=== PATIENT | female | born 1960 | race Caucasian/White ===

== ENCOUNTER 2021-12-27 08:24 | Day surgery (SDC) | payer MEDICAID ==
[~2021-12-27] VITALS: Ht 172.7 cm; Wt 77.9 kg
[2021-12-27] MEDS ORDERED: normal saline 1000ml 1,000 ML IV PRN (08:50)
[2021-12-27] MEDS ORDERED: DEXA4TAB77 PO (08:51)
[2021-12-27] MEDS ORDERED: ATOR10TA70 PO (08:51)
[2021-12-27 08:55] VITALS: BP 124/79
[2021-12-27] MEDS ORDERED: normal saline 1000ml 1,000 ML IV SCH (09:30)
[2021-12-27] MEDS ORDERED: LIDOcaine 1%/PF 5ML 10 MG/ML VIAL ONE ×2 (09:33→09:35)
[2021-12-27] MEDS ORDERED: midazolam 1 mg/ML 2ml injection ONE (09:33)
[2021-12-27] MEDS ORDERED: fentaNYL/PF 50MCG/1 ML 2ML syringe ONE (09:34)
[2021-12-27] MEDS ORDERED: heparin 1,000unit/ml 10ml vial 0 ML ONE (09:35)
[2021-12-27] MEDS ORDERED: heparin sodium, porcine/PF 100unit/ml 5ML syringe ONE (09:38)
[2021-12-27 10:59] VITALS: BP 142/87
[2021-12-27 11:15] VITALS: BP 136/56
[2021-12-27 11:30] VITALS: BP 116/77
[2021-12-27 11:45] VITALS: BP 122/70
[2021-12-27 12:00] VITALS: BP 121/86
== END 2021-12-27 12:14 | disposition home or self-care (01) ==
LOC: SSTAY O 08:24
PROVIDERS: ATTEND Radiology Diagnostic Radiology
DX: C50.412 Malignant neoplasm of upper-outer quadrant of left female breast (principal); E78.00 Pure hypercholesterolemia, unspecified; Z79.899 Other long term (current) drug therapy
CPT/HCPCS: 36561; 76937; 77001; 99152; 99153; C1769; C1788; C1894; J1642; J2250; J3010; J3490; A9270; J1644

== ENCOUNTER 2022-05-07 07:50 | Day surgery (SDC) | payer MEDICAID ==
[~2022-05-07] VITALS: Ht 172.7 cm; Wt 84.9 kg
[~2022-05-07 07:50] MED LIST: ATOR10TA70 PO; DEXA4TAB77 PO
[2022-05-07 08:20] VITALS: BP 134/93
[2022-05-07] MEDS ORDERED: ANAS1TAB10 PO (08:27)
[2022-05-07] MEDS ORDERED: ERGO400C PO (08:27)
[2022-05-07] MEDS ORDERED: CALC600T22 PO (08:27)
[2022-05-07] MEDS ORDERED: LIDOcaine 1%/PF 5ML 10 MG/ML VIAL ONE (09:40)
[2022-05-07 10:44] VITALS: BP 126/87
== END 2022-05-07 11:05 | disposition home or self-care (01) ==
LOC: SSTAY O 07:50
PROVIDERS: ATTEND Radiology Vascular & Interventional Radiology
DX: Z45.2 Encounter for adjustment and management of vascular access device (principal); Z79.899 Other long term (current) drug therapy; Z98.890 Other specified postprocedural states; Z85.3 Personal history of malignant neoplasm of breast
CPT/HCPCS: 36590; J3490; J7030